=== PATIENT | male | born 1945 | race Caucasian/White ===

== ENCOUNTER 2016-07-27 07:56 | Day surgery (SDC) | payer MEDICARE, OTHER ==
[2016-07-27] MEDS ORDERED: ONDANSETRON HCL INJ/PF 4 MG/2 ML SDV ONE (08:54)
[2016-07-27] MEDS ORDERED: NALOXONE HCL INJ/PF 0.4 MG/1 ML SDV ONE (08:54)
[2016-07-27] MEDS ORDERED: PROMETHAZINE HCL INJ 25 MG/1 ML VIAL ONE (08:54)
[2016-07-27] MEDS ORDERED: MIDAZOLAM 2 MG/2 ML INJ ONE (08:54)
[2016-07-27] MEDS ORDERED: DIPHENHYDRAMINE HCL 50 MG/ML VIAL ONE (08:54)
[2016-07-27] MEDS ORDERED: FLUMAZENIL INJ 0.5 MG/5 ML VIAL IV ONE (08:55)
[2016-07-27] MEDS ORDERED: FENTANYL CITRATE INJ/PF 100 MCG/2 ML AMPUL ONE (08:55)
[2016-07-27] MEDS ORDERED: EPINEPHRINE INJ 1 MG/10 ML DISP.SYRIN ONE (08:55)
[2016-07-27] MEDS ORDERED: GLUCAGON,HUMAN RECOMB 1 MG INJ ONE (08:55)
--- NOTE | 2016-07-27 09:20 | Operative Report ---
Operative Report DATE OF SURGERY: 07/27/16 Operative Report: The risks, benefits and alternatives of the procedure including risks of bleeding, perforation requiring surgery are explained to the patient in detail and informed consent is obtained. Patient is taken back to the endoscopy suite. He is placed in the left, lateral decubital position. Rectal examination was done which did not reveal any masses tears or fissures. timeout is called. Conscious sedation medications are provided. An Olympus videoscope was inserted into the patient's rectum. The scope was then gradually advanced all the way to the cecum. The cecum was identified by the usual anatomical landmarks including the ileocecal valve as well as the appendiceal office. Photodocumentation was obtained. Prep is good. The scope was then sequentially pulled back via the various segments of the colon including the ascending colon, hepatic flexure, transverse colon, splenic flexure, descending colon and finally into the rectosigmoid colon. Retroflexion maneuvers performed. PREOPERATIVE DIAGNOSIS: Personal history of polyps POSTOPERATIVE DIAGNOSIS: Colon polyp 1 hepatic flexure. Diverticulosis. Internal hemorrhoids OPERATION: Colonoscopy with biopsy SURGEON: RUSLAN THOMPSON ANESTHESIA: Moderate Sedation - 4 mg of Versed, 75 g of fentanyl. Conscious sedation monitoring time 30 minutes. TISSUE REMOVED OR ALTERED: Colon polyp removed and retrieved COMPLICATIONS: None. ESTIMATED BLOOD LOSS: none. INTRAOPERATIVE FINDINGS: Diverticulosis, internal hemorrhoids as described above PROCEDURE: Patient tolerated the procedure well. No immediate postprocedure complications are noted. Patient discharged in good condition. Discharge date 07/27/2016. Discharge activity: Regular. Discharge diet: Regular. Surveillance colonoscopy in 5 years Patient does have a 2-3 week follow-up to discuss findings Patient is instructed to call the office or proceed to the emergency room after any further problems or questions We'll follow-up on biopsy
[2016-07-27 10:11] VITALS: BP 112/74
== END 2016-07-27 09:25 | disposition home or self-care (01) ==
LOC: END 07:56
PROVIDERS: ATTEND Internal Medicine Gastroenterology
PROC: 0DBE8ZX Excision of Large Intestine, Via Natural or Artificial Opening Endoscopic, Diagnostic (ICD-10-PCS; principal; 2016-07-27 08:30)
DX: Z12.11 Encounter for screening for malignant neoplasm of colon (principal); K63.5 Polyp of colon; K57.30 Diverticulosis of large intestine without perforation or abscess without bleeding; K64.8 Other hemorrhoids; J44.9 Chronic obstructive pulmonary disease, unspecified; I10 Essential (primary) hypertension; Z99.81 Dependence on supplemental oxygen; Z87.891 Personal history of nicotine dependence; Z79.51 Long term (current) use of inhaled steroids; Z88.3 Allergy status to other anti-infective agents
CPT/HCPCS: 45380; 88305 ×2; J2250; J3010; J1610; J0171; J1200; J2310; J2405; J2550; J3490

== ENCOUNTER 2016-09-29 09:42 | Day surgery (SDC) | payer MEDICARE, OTHER ==
[~2016-09-29 09:42] MED LIST: KETOROLAC TROMETHAMINE 0.45% 4 DROP/0.4 ML DROPERETTE OS PRN
[2016-09-29] MEDS: CYCLOPENTOLATE 0.2%/PHENYLEPHRINE 1% OPH SOLN 2 ML OS PRN ×3 (10:31→10:58)
[2016-09-29] MEDS: TROPICAMIDE 1% OPH SOLN 3 ML OS PRN ×3 (10:32→10:59)
[2016-09-29] MEDS ORDERED: PHENYLEPHRINE/KETOROLAC 1%-0.3% 4 ML VIAL ONE (10:33)
[2016-09-29] MEDS: BESIFLOXACIN HCL 0.6% OPH SUSP 5 ML BOTTLE OS PRN ×3 (10:33→11:45)
[2016-09-29] MEDS ORDERED: CHONDR SU A NA/HYALUR INTRAOC KIT (SURGICARE) ONE (10:34)
[2016-09-29] MEDS ORDERED: LIDOCAINE 1% INJ-PF (10 MG/ML) 30 ML SDV ONE (10:34)
[2016-09-29] MEDS: TETRACAINE HCL 0.5% OPH SOLN 2 ML OS PRN ×3 (10:35→11:17)
[2016-09-29] MEDS ORDERED: MIDAZOLAM 2 MG/2 ML INJ ONE ×2 (11:01)
--- NOTE | 2016-09-29 19:57 | [facility] OPERATIVE REPORT E ---
[facility] Operative Report NAME: ALVAREZ GALVAN AGE: 71Y DATE OF SURGERY: 09/29/2016 ROOM: PREOPERATIVE DIAGNOSIS: CATARACT, LEFT EYE. POSTOPERATIVE DIAGNOSIS: CATARACT, LEFT EYE. OPERATION: Cataract extraction with intraocular lens implant of the left eye. SURGEON: NICK MORALES M.D. ANESTHESIA: Topical. PROCEDURE: After obtaining appropriate consent, the patient's left eye was prepped and draped in sterile fashion as well as the surgeon in a sterile manner and cataract surgery was started. First a paracentesis blade was used to make a small side-port incision. Viscoelastic was used to inflate the anterior chamber. Next a 2.4 mm incision was made with the paracentesis blade. A continuous capsulorrhexis incision was made using a cystotome and Utrata forceps. Following this hydrodissection was carried out to make the lens fully loose and mobile and it was rotated 90 degrees. Following this, a gohpvt-qmd-hbhumjr technique was used to phacoemulsify the lens with a CDE of 8.27. The remaining cortex was removed with irrigation/aspiration. Provisc was instilled into the capsular bag to inflate the bag. A SN60WF 23.5 diopter lens was placed. The remaining viscoelastic material was removed with irrigation/aspiration. Following this, a 10-0 nylon suture was used to close the incision and it was found to be watertight. Vigamox was instilled in the eye and a protective shield was placed over the eye. The patient returned to the postoperative recovery in stable condition. DICTATING PHYSICIAN: NICK MORALES M.D. [id number] [id number] PHY#: [id number] ID: [id number] JOB#: [id number] ACCT: [id number] cc:Jovi ROBLEDO M.D. > [facility]ITALKofi
--- NOTE | 2016-09-29 19:58 | [facility] DISCHARGE SUMMARY E ---
[facility] Discharge Summary NAME: ALVAREZ GALVAN AGE: 71Y ADMITTED: 09/29/2016 DISCHARGED: 09/29/2016 FINAL DIAGNOSIS: Cataract, left eye. HOSPITAL COURSE: This is a 71-year-old male who underwent cataract extraction of the left eye. He underwent surgery due to difficulty seeing small print. He should be on a regular diet, no bending at his waist, no heavy lifting. He is to use Besivance, Ilevro, and Durezol at 3 p.m. and 8 p.m. and sleep with a rigid shield. I will see him for 1 day postoperative tomorrow. DICTATING PHYSICIAN: NICK MORALES M.D. 5162M [id number] PHY#: [id number] ID: [id number] JOB#: [id number] ACCT: [id number] cc:Jovi DAVIDSON M.D. > MTDD
== END 2016-09-29 12:41 | disposition home or self-care (01) ==
LOC: SC 09:42
PROVIDERS: ATTEND Internal Medicine
PROC: 08RJ3JZ Replacement of Right Lens with Synthetic Substitute, Percutaneous Approach (ICD-10-PCS; principal; 2016-09-29 11:00)
DX: H25.812 Combined forms of age-related cataract, left eye (principal); H57.03 Miosis; J44.9 Chronic obstructive pulmonary disease, unspecified; Z79.51 Long term (current) use of inhaled steroids; Z88.8 Allergy status to other drugs, medicaments and biological substances; Z87.891 Personal history of nicotine dependence; Z99.81 Dependence on supplemental oxygen
CPT/HCPCS: 66984; V2632; J2250; J3490 ×2; A9270; C9447; 142

== ENCOUNTER 2016-10-20 09:44 | Day surgery (SDC) | payer MEDICARE, OTHER ==
[~2016-10-20 09:44] MED LIST changes: +KETOROLAC TROMETHAMINE 0.45% 4 DROP/0.4 ML DROPERETTE OD PRN; -KETOROLAC TROMETHAMINE 0.45% 4 DROP/0.4 ML DROPERETTE OS PRN
[2016-10-20] MEDS: TETRACAINE HCL 0.5% OPH SOLN 2 ML OD PRN ×3 (10:00→10:37)
[2016-10-20] MEDS: TROPICAMIDE 1% OPH SOLN 3 ML OD PRN ×3 (10:01→10:24)
[2016-10-20] MEDS: CYCLOPENTOLATE 0.2%/PHENYLEPHRINE 1% OPH SOLN 2 ML OD PRN ×3 (10:01→10:24)
[2016-10-20] MEDS: BESIFLOXACIN HCL 0.6% OPH SUSP 5 ML BOTTLE OD PRN ×4 (10:02→11:01)
[2016-10-20] MEDS ORDERED: PHENYLEPHRINE/KETOROLAC 1%-0.3% 4 ML VIAL ONE (10:19)
[2016-10-20] MEDS ORDERED: LIDOCAINE 1% INJ-PF (10 MG/ML) 30 ML SDV ONE (10:19)
[2016-10-20] MEDS ORDERED: CHONDR SU A NA/HYALUR INTRAOC KIT (SURGICARE) ONE (10:19)
[2016-10-20] MEDS ORDERED: MIDAZOLAM 2 MG/2 ML INJ ONE (10:33)
[2016-10-20] MEDS ORDERED: FENTANYL CITRATE INJ/PF 100 MCG/2 ML AMPUL ONE (10:34)
--- NOTE | 2016-10-21 07:18 | [facility] OPERATIVE REPORT E ---
[facility] Operative Report NAME: ALVAREZ GALVAN AGE: 71Y DATE OF SURGERY: 10/20/2016 ROOM: PREOPERATIVE DIAGNOSIS: CATARACT, RIGHT EYE. POSTOPERATIVE DIAGNOSIS: CATARACT, RIGHT EYE. OPERATION: Cataract extraction with intraocular lens implant of the right eye. SURGEON: NICK MORALES M.D. ANESTHESIA: Topical. PROCEDURE: After obtaining appropriate consent, the patient's right eye was prepped and draped in sterile fashion as well as the surgeon in a sterile manner and cataract surgery was started. First a paracentesis blade was used to make a small side-port incision. Viscoelastic was used to inflate the anterior chamber. Next a 2.4 mm incision was made with the paracentesis blade. A continuous capsulorrhexis incision was made using a cystotome and Utrata forceps. Following this hydrodissection was carried out to make the lens fully loose and mobile and it was rotated 90 degrees. Following this, a ubzrhk-gxv-tboqnkq technique was used to phacoemulsify the lens with a CDE of 6.13. The remaining cortex was removed with irrigation/aspiration. Provisc was instilled into the capsular bag to inflate the bag. A SN60WF, 22.0 diopter lens was placed. The remaining viscoelastic material was removed with irrigation/aspiration. Following this, a 10-0 Nylon suture was used to close the incision and it was found to be watertight. Vigamox was instilled in the eye and a protective shield was placed over the eye. The patient returned to the postoperative recovery in stable condition. DICTATING PHYSICIAN: NICK MORALES M.D. [id number] PHY#: [id number] ID: [id number] JOB#: [id number] ACCT: [id number] cc:NICK MORALES M.D. >
--- NOTE | 2016-10-21 07:24 | [facility] DISCHARGE SUMMARY E ---
[facility] Discharge Summary NAME: ALVAREZ GALVAN AGE: 71Y ADMITTED: 10/20/2016 DISCHARGED: 10/20/2016 HOSPITAL COURSE This is a 71-year-old female who underwent cataract extraction of the right eye. DIAGNOSIS: CATARACT, RIGHT EYE. INDICATIONS: He underwent the surgery because he is having trouble seeing newspaper and fine print. DISCHARGE INSTRUCTIONS: He is to be on a regular diet; no bending at his waist; no heavy lifting; He is to use Besivance, Ilevro and Durezol at 3:00 p.m. and 8:00 p.m.; and, sleep with a rigid shield; and I will see him for his 1-day postoperative tomorrow. DICTATING PHYSICIAN: NICK MORALES M.D. [id number] [id number] PHY#: [id number] ID: [id number] JOB#: [id number] ACCT: [id number] cc:NICK MORALES M.D. >
== END 2016-10-20 12:04 | disposition home or self-care (01) ==
LOC: SC 09:44
PROVIDERS: ATTEND Internal Medicine
PROC: 08RJ3JZ Replacement of Right Lens with Synthetic Substitute, Percutaneous Approach (ICD-10-PCS; principal; 2016-10-20 11:00)
DX: H25.811 Combined forms of age-related cataract, right eye (principal); H57.03 Miosis; Z96.1 Presence of intraocular lens; J44.9 Chronic obstructive pulmonary disease, unspecified; Z87.891 Personal history of nicotine dependence; Z79.51 Long term (current) use of inhaled steroids
CPT/HCPCS: 66984; V2632; J2250; J3490 ×2; A9270; J3010; C9447; 142

== ENCOUNTER → 2016-10-31 | Outpatient (CLI) | payer MEDICARE, OTHER ==
[2016-10-31 08:39] LABS: ANION GAP 11 (5-19); BLOOD UREA NITROGEN 17 mg/dL (7-20); CALCIUM 9.6 mg/dL (8.4-10.2); CARBON DIOXIDE 27 mmol/L (22-30); CHLORIDE 104 mmol/L (98-107); CREATININE RESULT 1.03 mg/dL (0.52-1.25); GLUCOSE 103 mg/dL (75-110); MAGNESIUM 2.1 mg/dL (1.6-2.3); POTASSIUM 4.6 mmol/L (3.6-5.0); SODIUM 141.5 mmol/L (137-145)
== END ==
LOC: OD 07:17
PROVIDERS: ATTEND Internal Medicine Cardiovascular Disease
DX: Z79.899 Other long term (current) drug therapy (principal)
CPT/HCPCS: 36415; 80048; 83735

== ENCOUNTER → 2016-12-06 | Outpatient (CLI) | payer MEDICARE, OTHER ==
[2016-12-06 12:20] LABS: ALANINE AMINOTRANSFERASE 42 U/L (21-72); ALBUMIN 4.2 g/dL (3.5-5.0); ALKALINE PHOSPHATASE 56 U/L (38-126); ASPARTATE AMINO TRANSFERASE 20 U/L (17-59); BILIRUBIN,DIRECT 0.2 mg/dL (0.0-0.4); BILIRUBIN,TOTAL 0.7 mg/dL (0.2-1.3); MAGNESIUM 2.1 mg/dL (1.6-2.3); TOTAL PROTEIN 6.8 g/dL (6.3-8.2)
[2016-12-08 08:48] LABS: CHOLESTEROL 126.02 mg/dL (0-200); Direct HDL 60 mg/dL (>40); TRIGLYCERIDES 82 mg/dL (<150)
[2016-12-08 08:59] LABS: DIRECT LDL 46 mg/dL (<100)
== END ==
LOC: OD 10:53
PROVIDERS: ATTEND Internal Medicine Cardiovascular Disease
DX: E78.00 Pure hypercholesterolemia, unspecified (principal); R00.2 Palpitations; Z79.899 Other long term (current) drug therapy
CPT/HCPCS: 36415; 80061; 80076; 83735